=== PATIENT | male | born 1985 | race Caucasian/White ===

== ENCOUNTER 2016-04-30 22:02 | Emergency (ER) | payer OTHER | END 2016-05-01 09:40 | disposition home or self-care (01) | LOC: ER 22:02 | DX: R45.851 Suicidal ideations (principal); F32.9 Major depressive disorder, single episode, unspecified; T43.615A Adverse effect of caffeine, initial encounter; F41.9 Anxiety disorder, unspecified; F17.210 Nicotine dependence, cigarettes, uncomplicated | CPT/HCPCS: 36415; 80307; 96360; G0480 ==